=== PATIENT | female | born 1935 | race Caucasian/White ===

== ENCOUNTER → 2017-02-19 | Outpatient (CLI) | payer OTHER, MEDICARE ==
[~2017-02-19] MED LIST: GADOBUTROL 10 ML VIAL IVP ONE
[2017-02-19 15:54] LABS: CREATININE 0.6 mg/dL (0.6-1.0); GLOMERULAR FILTRATION RATE > 60
== END ==
LOC: FIMAGING 15:13
PROVIDERS: ATTEND Psychiatry & Neurology Neurology
DX: R51 Headache (principal)
CPT/HCPCS: 70553; A9585

== ENCOUNTER → 2017-04-16 | Outpatient (CLI) | payer OTHER, MEDICARE | LOC: FIMAGING 18:30 | PROVIDERS: ATTEND Internal Medicine | DX: R51 Headache (principal); R29.818 Other symptoms and signs involving the nervous system; R42 Dizziness and giddiness ==

== ENCOUNTER → 2018-01-11 | Outpatient (CLI) | payer OTHER, MEDICARE | LOC: BMCIMAGING 16:43 | PROVIDERS: ATTEND Internal Medicine | DX: M25.511 Pain in right shoulder (principal) ==

== ENCOUNTER → 2018-02-22 | Outpatient (CLI) | payer OTHER, MEDICARE | LOC: FIMAGING 15:37 | DX: Z12.31 Encounter for screening mammogram for malignant neoplasm of breast (principal) ==

== ENCOUNTER → 2019-02-07 | Outpatient (CLI) | payer OTHER, MEDICARE | LOC: EMCIMAGING 07:56 | PROVIDERS: ATTEND Internal Medicine | DX: Z12.31 Encounter for screening mammogram for malignant neoplasm of breast (principal); Z13.820 Encounter for screening for osteoporosis; M81.0 Age-related osteoporosis without current pathological fracture; Z78.0 Asymptomatic menopausal state | CPT/HCPCS: 77067-PN; 77080-PN ==